=== PATIENT | female | born 1970 | race Caucasian/White ===

== ENCOUNTER 2020-07-03 13:43 | Inpatient (IN) ==
--- NOTE | 2020-07-03 13:56 | DR.RASH ---
HPI Time Seen Time Seen by Provider: 07/03/20 13:55 COVID-19 Coronavirus risk:travel/contact w/high risk person: No Has patient experienced Coronavirus symptoms: No Reviewed Nurses Notes Review: Yes Source History Provided: Patient (NOT GIVEN GOOD HISTORY CURRENTLY.) Mode of Arrival Mode of Arrival: EMS Location Location: Face and Hands Quality Quality: Pustules Context Circumstances: None (NOTED AFTER WEARING LATEX GLOVES.) History of: None Severity Pain Severity: Moderate Associated signs and symptoms Associated signs and symptoms: Facial swelling PMH PMH Past Medical History: Anxiety, Arthritis, Asthma, Depression, Migraines, GERD, Hypertension, Hypothyroidism and Seizures Past Surgical History: Yes Surgical History: Abdominal Surgery, Cholecystectomy, Hysterectomy, Tonsillectomy and Weight Loss Surgery Family History Family Medical History: Diabetes Mellitus, Cancer, [place], Coronary Artery Disease, Sudden Cardiac and Hypertension Social History Do you use any recreational Drugs:: No Travel Risk Coronavirus risk:travel/contact w/high risk person: No Has patient experienced Coronavirus symptoms: No ROS Review of Systems Constitutional: See HPI, Weakness and Fatigue; negative Fever Eyes: No Symptoms Reported and See HPI ENTM: No Symptoms Reported and See HPI; negative Nose Discharge and Nose Congestion Respiratoy: See HPI and Short of Breath Cardiovascular: See HPI and Palpitations Gastrointestinal/Abdominal: No Symptoms Reported and See HPI; negative Diarrhea and Vomiting Genitourinary: See HPI and Other (DARK COLOR URINE.); negative Dysuria Neurological: See HPI and Weakness Musculoskeletal: See HPI and Hand (SWELLING AND PAIN.) Integumentary: See HPI, Change in Color, Rash and Juandice Hematologic/Lymphatic: See HPI, Easy Bleeding and Easy Bruising Endocrine: See HPI and Increased Thirst Psychiatric: See HPI and Depression All Other Systems: Reviewed and Negative PE Vital Signs Vitals: Temperature 97.9 F Pulse Rate [Left Radial] 118 Pulse Rate 127 Respiratory Rate 19 Blood Pressure [Left Arm] 99/54 Blood Pressure 96/51 O2 Sat by Pulse Oximetry 100 General Limitations: Other (ANSWERING QUESTIONS SLOWLY.) General Appearance: Alert and In No Apparent Distress Head Head Exam: Normal Inspection and Atraumatic Eyes Eye exam: Normal Appearance, PERRL and Scleral Icterus; negative Conjunctival Injection ENT ENT Exam: Normal Oropharynx, Normal External Ear Exam, Mucous Membranes Dry and TM's Normal Bilaterally External Ear Exam: Normal External Inspection; negative Mastoid Tenderness TM/Canal Exam: Bilateral: Normal Nose Exam: Normal Nose Exam Mouth Exam: Normal Inspection; negative Lip Swelling and Tongue Swelling Teeth Exam: Dental Caries; negative Dental Tenderness # and Gingival Swelling Throat Exam: Normal Inspection; negative Tonsillar Erythema, Tonsillomegaly and Tonsillar Exudate Neck Neck Exam: Normal Inspection and Trachea Midline; negative Tenderness and Lymphadenopathy Chest Chest Inspection: Normal Inspection and Symmetric Chest Wall Rise; negative Tenderness Respiratory Respiratory Exam: Normal Lung Sounds Bilat, Accessory Muscle Use, Chest Wall Tenderness and Respiratory Distress Respiratory Exam: Bilateral: Rhonchi Cardiovascular Cardiovascular Exam: Normal Rhythm and Tachycardia; negative Systolic Murmur and Diastolic Murmur Abdominal Exam Abdominal Exam: Normal Bowel Sounds, Soft and Tenderness Abdominal Tenderness: Diffuse and Mild Extremities Extremities Exam: Tenderness, Edema and Other (SKIN INFECTION HANDS WITH SWELLING.); negative Normal Capillary Refill Back Back Exam: Normal Inspection; negative (R) CVA Tenderness and (L) CVA Tenderness Neurologic Neurological Exam: Alert (SLEEPY.), Oriented X3 and CN II-XII Intact; negative Motor Sensory Deficit Psychiatric Psychiatric Exam: Normal Affect and Flat Affect Skin Skin Exam: Dry, Rash (FINGERS AND HANDS.) and Erythema Type of Lesion: Rash Distribution: Face, LUE and RUE Description: Tenderness, Swelling and Other MDM Differential Diagnosis Differential Diagnosis: Contact dermatitis (HYPOTENSION, JAUDICE, PNEUMONIA, SEPSIS, LIVER DISEASE.) and Impetigo COURSE Treatment Treatment: SEE ORDERS. NS 1L IV BOLUS. ANCEF 1GM IVPB IN ER. BP STILL LOW BUT IMPROVING WITH HYDRATION. PATIENT RECTAL TEMP NORMAL. WILL ADMIT PATIENT FOR FURTHER MANAGEMENT. Consultation Consultation Comments: DISCUSSED PATIENT WITH DR. JARAMILLO. HE WILL ADMIT PATIENT. Education/Counseling Education/Counseling: Patient Educated On: Diagnosis ROR Labs Reviewed Laboratory Results Reviewed?: Yes Result Diagrams: 07/04/20 05:12 07/04/20 15:40 Laboratory: WBC 6.2 X10^3/uL (3.6-10.0) 07/03/20 15:09 RBC 4.34 X10^6/uL (3.5-5.4) 07/03/20 15:09 Hgb 15.2 g/dL (12.0-16.0) 07/03/20 15:09 Hct 47.5 % (36.0-47.0) H 07/03/20 15:09 MCV 109.6 fL (80.0-100.0) H 07/03/20 15:09 MCH 35.0 pg (27.0-34.0) H 07/03/20 15:09 MCHC 32.0 g/dL (33.0-35.0) L 07/03/20 15:09 RDW 17.5 % (11.6-16.5) H 07/03/20 15:09 Plt Count 125 X10^3/uL (150.0-450.0) L 07/03/20 15:09 Plt Count Comment Decreased (ADEQUATE) A 07/03/20 15:09 MPV 9.6 fL (7.4-11.0) 07/03/20 15:09 Neut % (Auto) 66.5 % (42.0-75.0) 07/03/20 15:09 Lymph % (Auto) 26.7 % (21.0-51.0) 07/03/20 15:09 Wetzel % (Auto) 5.1 % (0.0-13.0) 07/03/20 15:09 Eos % (Auto) 1.4 % (0.9-2.9) 07/03/20 15:09 Baso % (Auto) 0.3 % (0.2-1.0) 07/03/20 15:09 Neut # (Auto) 4.1 x10^3/uL (2.2-4.8) 07/03/20 15:09 Lymph # (Auto) 1.7 X10^3/uL (1.3-2.9) 07/03/20 15:09 Wetzel # (Auto) 0.3 x10^3/uL (0.3-0.8) 07/03/20 15:09 Eos # (Auto) 0.1 x10^3/uL (0.0-0.2) 07/03/20 15:09 Baso # (Auto) 0.0 X10^3/uL (0.0-0.1) 07/03/20 15:09 Absolute Nucleated RBC 0.3 /100WBC 07/03/20 15:09 Total Counted 100 07/03/20 15:09 Neutrophils % (Manual) 64 % (39-76) 07/03/20 15:09 Band Neutrophils % 3 % (0-10) 07/03/20 15:09 Lymphocytes % (Manual) 26 % (13-43) 07/03/20 15:09 Monocytes % (Manual) 7 % (4-9) 07/03/20 15:09 Plt Clumps, EDTA Rare 07/03/20 15:09 Plt Morphology Comment Normal (NORMAL) 07/03/20 15:09 RBC Morphology Abnormal (NORMAL) A 07/03/20 15:09 Macrocytosis 1+ A 07/03/20 15:09 Sodium 141 mmol/L (136-145) 07/03/20 15:09 Corrected Sodium TNP 07/03/20 15:09 Potassium 4.8 mmol/L (3.5-5.1) 07/03/20 15:09 Chloride 104 mmol/L (98-107) 07/03/20 15:09 Carbon Dioxide 24.6 mmol/L (21-32) 07/03/20 15:09 BUN 11 mg/dL (7-18) 07/03/20 15:09 Creatinine 2.13 mg/dL (0.55-1.02) H 07/03/20 15:09 Est GFR (MDRD) Af Amer 32 (>60) L 07/03/20 15:09 Est GFR (MDRD) Non-Af 26 (>60) L 07/03/20 15:09 Glucose 65 mg/dL (65-99) 07/03/20 15:09 Calcium 8.4 mg/dL (8.5-10.1) L 07/03/20 15:09 Corrected Calcium 9.8 mg/dL (8.5-10.1) 07/03/20 15:09 Ferritin 241 ng/mL (8-252) 07/03/20 15:09 Total Bilirubin 4.90 mg/dL (0.2-1.0) H 07/03/20 15:09 AST 59 Units/L (15-37) H 07/03/20 15:09 ALT 34 Units/L (12-78) 07/03/20 15:09 Alkaline Phosphatase 161 Units/L (46-116) H 07/03/20 15:09 Ammonia 79 umol/L (11-32) H 07/03/20 15:09 Creatine Kinase 46 Units/L (26-192) 07/03/20 15:09 CK-MB (CK-2) < 1.0 ng/mL (0-4.0) 07/03/20 15:09 CK/CKMB % Calc 2.2 % (<4) 07/03/20 15:09 Troponin I < 0.02 ng/mL (0-1.5) 07/03/20 15:09 C-Reactive Protein 105.30 mg/L (0-3.0) H 07/03/20 15:09 Total Protein 5.5 g/dL (6.4-8.2) L 07/03/20 15:09 Albumin 2.2 g/dL (3.4-5.0) L 07/03/20 15:09 Globulin 3.3 g/dL (2.5-4.5) 07/03/20 15:09 Albumin/Globulin Ratio 0.7 Ratio (1.1-2.1) L 07/03/20 15:09 Specimen Type Catherized urine 07/03/20 15:45 Urine Color Dark yellow (YELLOW) 07/03/20 15:45 Urine Appearance Slightly hazy (CLEAR) 07/03/20 15:45 Urine pH 6.0 (5.0 - 8.0) 07/03/20 15:45 Ur Specific [place] 1.015 (1.000-1.030) 07/03/20 15:45 Urine Protein Negative (NEGATIVE) 07/03/20 15:45 Urine Glucose (UA) Negative (NEGATIVE) 07/03/20 15:45 Urine Ketones Negative (NEGATIVE) 07/03/20 15:45 Urine Occult Blood Negative (NEGATIVE) 07/03/20 15:45 Urine Nitrite Negative (NEGATIVE) 07/03/20 15:45 Urine Bilirubin Negative (NEGATIVE) 07/03/20 15:45 Urine Urobilinogen 2+ (NORMAL) 07/03/20 15:45 Ur Leukocyte Esterase 1+ (NEGATIVE) 07/03/20 15:45 Urine RBC None seen /HPF (0-3) 07/03/20 15:45 Urine WBC None seen /HPF (0-5) 07/03/20 15:45 Ur Squamous Epith Cells Rare /HPF (NEGATIVE) 07/03/20 15:45 Urine Bacteria 2+ /HPF (NEGATIVE) 07/03/20 15:45 Ur Culture Indicated? No/not indicated 07/03/20 15:45 Urine Opiates Screen Negative (NEG=<300) 07/03/20 17:42 Urine Methadone Screen Negative (NEG=<300) 07/03/20 17:42 Ur Barbiturates Screen Negative (NEG=<200) 07/03/20 17:42 Ur Phencyclidine Scrn Negative (NEG=<25) 07/03/20 17:42 Ur Amphetamines Screen Negative (NEG=<1000) 07/03/20 17:42 U Benzodiazepines Scrn Negative (NEG=<200) 07/03/20 17:42 Urine Cocaine Screen Negative (NEG=<300) 07/03/20 17:42 U Marijuana (THC) Screen Negative (NEG=<50) 07/03/20 17:42 SARS CoV-2 RNA Rapid ANALI Negative (NEGATIVE) 07/03/20 17:54 SARS-CoV-2 IgG Ab Cancelled 07/03/20 15:09 SARS-CoV-2 IgG (MADIE) 1 Cancelled 07/03/20 15:09 XRAY XRAY Interpreted by: Radiologist (REPORT NOTED.) and Self EKG Rate: 128 [place]: Normal Rhythm: ST Block: None Hypertrophy: None (LOW VOLTAGE.) ST: Normal Opioid Opioid Risk Tool Age (Jackson box if 16-45): No Total: 0 Total Score Risk Category: Low Risk Copyright: Hilario VÁZQUEZ predicting aberrant behaviors Diagnosis Discharge Problem: Acute hypotension, Encephalopathy, hepatic, Acute renal insufficiency, Thrombocytopenia
[2020-07-03 14:01] VITALS: BMI 21.9
[2020-07-03] MEDS ORDERED: NS 1000 ML 1,000 ML ONE (14:06)
[2020-07-03] MEDS: NS 1000 ML 1,000 ML IV SCH (14:13)
--- NOTE | 2020-07-03 14:56 | RAD ---
HISTORYShortness of breathSTUDYChest AP [id number]/15/2019FINDINGSThe heart is within normal limits in size. The arie are normal. The lungs are free of acute infiltrates. No pleural effusions are identified. Bony thorax is unremarkable.IMPRESSIONNo significant abnormality identifiedElectronically signed by: POLLO TORRES (Jul 03, 2020 14:54:47)
[2020-07-03 15:22] LABS: BASOPHILS % (AUTO) 0.3 % (0.2-1.0); EOSINOPHILS # (AUTO) 0.1 x10^3/uL (0.0-0.2); EOSINOPHILS % (AUTO) 1.4 % (0.9-2.9); HEMATOCRIT 47.5 % (36.0-47.0); HEMOGLOBIN 15.2 g/dL (12.0-16.0); LYMPHOCYTES # (AUTO) 1.7 X10^3/uL (1.3-2.9); LYMPHOCYTES % (AUTO) 26.7 % (21.0-51.0); MEAN CORPUSCULAR VOLUME 109.6 fL (80.0-100.0); MEAN PLATELET VOLUME 9.6 fL (7.4-11.0); MONOCYTES # (AUTO) 0.3 x10^3/uL (0.3-0.8); MONOCYTES % (AUTO) 5.1 % (0.0-13.0); NEUTROPHILS # (AUTO) 4.1 x10^3/uL (2.2-4.8); NEUTROPHILS % (AUTO) 66.5 % (42.0-75.0); PLATELET COUNT 125 X10^3/uL (150.0-450.0); RED BLOOD COUNT 4.34 X10^6/uL (3.5-5.4); RED CELL DISTRIBUTION WIDTH 17.5 % (11.6-16.5); WHITE BLOOD COUNT 6.2 X10^3/uL (3.6-10.0)
[2020-07-03 15:37] LABS: AMMONIA 79 umol/L (11-32); BAND NEUTROPHILS % 3 % (0-10)
[2020-07-03 15:38] LABS: PLATELET MORPHOLOGY COMMENT NORMAL (NORMAL)
[2020-07-03 15:49] LABS: ALANINE AMINOTRANSFERASE 34 Units/L (12-78); ALBUMIN 2.2 g/dL (3.4-5.0); ALKALINE PHOSPHATASE 161 Units/L (46-116); ASPARTATE AMINO TRANSFERASE 59 Units/L (15-37); BLOOD UREA NITROGEN 11 mg/dL (7-18); CALCIUM 8.4 mg/dL (8.5-10.1); CARBON DIOXIDE 24.6 mmol/L (21-32); CHLORIDE 104 mmol/L (98-107); CKMB % 2.2 % (<4); COR CA(FOR HYPOALB) 9.8 mg/dL (8.5-10.1); CREATINE KINASE 46 Units/L (26-192); CREATINE KINASE MB < 1.0 ng/mL (0-4.0); CREATININE 2.13 mg/dL (0.55-1.02); SODIUM 141 mmol/L (136-145); TOTAL PROTEIN 5.5 g/dL (6.4-8.2); TROPONIN I < 0.02 ng/mL (0-1.5); eGFR NON BLACK RACES 26 (>60)
[2020-07-03 15:59] LABS: BILIRUBIN,URINE NEGATIVE (NEGATIVE); BLOOD/HEMOGLOBIN,URINE NEGATIVE (NEGATIVE); GLUCOSE, URINE NEGATIVE (NEGATIVE); KETONES,URINE NEGATIVE (NEGATIVE); LEUKOCYTE ESTERASE ,URINE 1+ (NEGATIVE); NITRITES,URINE NEGATIVE (NEGATIVE); PROTEIN,URINE NEGATIVE (NEGATIVE); UROBILINOGEN,URINE 2+ (NORMAL)
[2020-07-03 16:04] LABS: APPEARANCE,URINE SLIGHTLY HAZY (CLEAR); BACTERIA,URINE 2+ /HPF (NEGATIVE); COLOR,URINE DARK YELLOW (YELLOW); RBC,URINE NONE SEEN /HPF (0-3); SQUAMOUS EPITHELIAL CELL,UR RARE /HPF (NEGATIVE)
--- NOTE | 2020-07-03 18:25 | CT ---
HISTORYPt c/o rash to hands and around mouth. She is unable to state when this started. Pt has been wearing latex gloves at home. She states pcp dx her with eczema.STUDYCT abdomen pelvis without IV contrastCOMPARISONCT 10/14/2018TECHNIQUEMultiple axial images of the abdomen and pelvis were obtained from the lung bases to the pubic symphysis without the administration of IV contrast. Dose reduction techniques including Automated Exposure Control (AEC) and adjustment of mA and kV were utilized.FINDINGSThe visualized portions of the lung bases suggest probable mild dependent atelectasis but this could be mild noncardiogenic pulmonary edema.Fatty infiltration of the liver and hepatomegaly are similar to prior study. Spleen is normal in size. Calcified granuloma are seen in the right lobe of the liver. Stable accessory splenule is seen near the splenic hilum.Prior cholecystectomy. No biliary ductal dilation.No pancreatic abnormality is seen.The adrenal glands appear normal.Stable appearing 1.7 cm exophytic cyst in the mid left kidney. No nephrolithiasis or hydronephrosis. Phleboliths are seen in the pelvis. Ureters and bladder appear normal.There is colitis in the ascending colon and proximal transverse colon. Mild left-sided constipation is seen. There is mild constipation in the cecum. Postoperative changes are seen in the stomach and small bowel in the left upper quadrant. No suggestion of small-bowel obstruction. Appendix is not seen but no pericecal inflammation is seen.There is a probable right ovarian cyst measuring 3.3 cm. Consider follow-up ultrasound in 6-8 weeks time to assure resolution.Abdominal aorta is normal in size.No suspicious lymphadenopathy.Mild free pelvic fluid.No acute bony abnormality is seen.IMPRESSIONColitis in the ascending and transverse colon. Mild constipation in the left side of the colon and cecum. Infectious colitis is most likely etiology.Likely 3.3 cm right ovarian cyst. Consider follow-up ultrasound in 6-8 weeks time to assure resolutionElectronically signed by: Mason Murrieta (Jul 03, 2020 18:23:48)
[2020-07-03 23:59] LABS: CKMB % 2.2 % (<4); CREATINE KINASE 50 Units/L (26-192); CREATINE KINASE MB 1.1 ng/mL (0-4.0); TROPONIN I < 0.02 ng/mL (0-1.5)
[2020-07-04 01:38] LABS: BILIRUBIN,URINE 1+ (NEGATIVE); BLOOD/HEMOGLOBIN,URINE NEGATIVE (NEGATIVE); GLUCOSE, URINE NEGATIVE (NEGATIVE); KETONES,URINE NEGATIVE (NEGATIVE); LEUKOCYTE ESTERASE ,URINE 1+ (NEGATIVE); NITRITES,URINE NEGATIVE (NEGATIVE); PROTEIN,URINE NEGATIVE (NEGATIVE); UROBILINOGEN,URINE 2+ (NORMAL)
[2020-07-04] MEDS: NS 1000 ML 1,000 ML IV SCH ×2 (01:40→06:35)
[2020-07-04 01:49] LABS: APPEARANCE,URINE SLIGHTLY HAZY (CLEAR); COLOR,URINE YELLOW (YELLOW)
[2020-07-04 01:50] LABS: BACTERIA,URINE 4+ /HPF (NEGATIVE); RBC,URINE NONE SEEN /HPF (0-3); SQUAMOUS EPITHELIAL CELL,UR NEGATIVE /HPF (NEGATIVE)
[2020-07-04] MEDS ORDERED: D50W ABBOJECT SYR ONE ×2 (02:02→06:15)
[2020-07-04] MEDS ORDERED: D50W ABBOJECT SYR IV ONE ×2 (02:10→06:13)
[2020-07-04] MEDS ORDERED: NS 1000 ML 1,000 ML ONE ×3 (02:25→17:07)
[2020-07-04] MEDS ORDERED: ANCEF VIAL 1 GRAM IVP SCH (06:10)
[2020-07-04] MEDS: KEPPRA TAB 500 MG PO SCH ×2 (06:14→09:00)
[2020-07-04] MEDS ORDERED: ANCEF VIAL 1 GRAM ONE (06:15)
[2020-07-04 06:16] LABS: BASOPHILS % (AUTO) 0.2 % (0.2-1.0); EOSINOPHILS # (AUTO) 0.1 x10^3/uL (0.0-0.2); EOSINOPHILS % (AUTO) 2.1 % (0.9-2.9); HEMATOCRIT 40.2 % (36.0-47.0); LYMPHOCYTES % (AUTO) 36.2 % (21.0-51.0); MEAN CORPUSCULAR HGB CONC 32.3 g/dL (33.0-35.0); MEAN CORPUSCULAR VOLUME 108.3 fL (80.0-100.0); MEAN PLATELET VOLUME 10.8 fL (7.4-11.0); MONOCYTES # (AUTO) 0 x10^3/uL (0.3-0.8); MONOCYTES % (AUTO) 1.7 % (0.0-13.0); NEUTROPHILS # (AUTO) 1.6 x10^3/uL (2.2-4.8); NEUTROPHILS % (AUTO) 59.8 % (42.0-75.0); PLATELET COUNT 81 X10^3/uL (150.0-450.0); RED BLOOD COUNT 3.71 X10^6/uL (3.5-5.4); RED CELL DISTRIBUTION WIDTH 18.2 % (11.6-16.5); WHITE BLOOD COUNT 2.6 X10^3/uL (3.6-10.0)
[2020-07-04 06:32] LABS: ALANINE AMINOTRANSFERASE 26 Units/L (12-78); ALBUMIN 1.3 g/dL (3.4-5.0); ALKALINE PHOSPHATASE 122 Units/L (46-116); ASPARTATE AMINO TRANSFERASE 68 Units/L (15-37); BLOOD UREA NITROGEN 13 mg/dL (7-18); CARBON DIOXIDE 16.1 mmol/L (21-32); CHLORIDE 109 mmol/L (98-107); CKMB % 2.7 % (<4); COR CA(FOR HYPOALB) 9.2 mg/dL (8.5-10.1); CREATINE KINASE 93 Units/L (26-192); CREATINE KINASE MB 2.5 ng/mL (0-4.0); CREATININE 2.72 mg/dL (0.55-1.02); MAGNESIUM 1.6 mg/dL (1.7-2.9); SODIUM 143 mmol/L (136-145); TOTAL PROTEIN 4.1 g/dL (6.4-8.2); TROPONIN I 0.02 ng/mL (0-1.5); eGFR NON BLACK RACES 20 (>60)
[2020-07-04] MEDS ORDERED: D5 NS 1000 ML 1,000 ML IV ONE ×7 (07:29→10:53)
[2020-07-04] MEDS ORDERED: ROCEPHIN 1 GRAM IV PREMIX 1 G/50 ML IV.SOLN. IV ONE (07:33)
[2020-07-04] MEDS: ROCEPHIN 1 GRAM IV PREMIX 1 G/50 ML IV.SOLN. IV SCH ×2 (07:34→09:01)
[2020-07-04 07:39] LABS: BAND NEUTROPHILS % 19 % (0-10); METAMYELOCYTES % 7
[2020-07-04 07:40] LABS: PLATELET MORPHOLOGY COMMENT NORMAL (NORMAL)
[2020-07-04 07:41] LABS: ABG ALLEN TEST POS; ABG BASE EXCESS -8.3 mmol/L (-2.0-2.0); ABG HCO3 14.3 mmol/L (22-26)
--- NOTE | 2020-07-04 08:16 | RAD ---
HISTORYNG tube placementSTUDYChest AP portableCOMPARISON8 June 2020FINDINGSThere is a nasogastric tube present with its tip in the expected position of the stomach however the side hole is above the gastroesophageal junction and advancement is recommended. The heart is within normal limits in size. The arie are normal. There has been interval development of a patchy right upper lobe infiltrate since the prior examination. The remainder of the lung richardson are clear. No pleural effusions are identified. Bony thorax is unremarkable.IMPRESSIONNG tube tip likely within the stomach however the side hole is within the distal esophagus and advancement is recommendedInterval development of a right upper lobe infiltrate since the prior examinationElectronically signed by: POLLO TORRES (Jul 04, 2020 08:14:22)
[2020-07-04] MEDS ORDERED: CHRONULAC ONE (08:28)
[2020-07-04] MEDS: CHRONULAC NG SCH ×3 (08:34→16:32)
[2020-07-04 09:30] LABS: LIPASE 21 Units/L (73-393)
[2020-07-04 09:31] LABS: AMYLASE 7 Units/L (25-115)
--- NOTE | 2020-07-04 09:49 | RAD ---
HISTORYCentral line placementSTUDYChest AP portableCOMPARISON04 July 2020 7:53 a.m.FINDINGSThere is a right IJ line with its tip at the cavoatrial junction. There is a nasogastric tube in good position. The heart is within normal limits in size. The arie are normal. Increasing infiltrate is present in the right upper and now the right lower lobe perihilar regions. The left lung is clear. Bony thorax is unremarkable.IMPRESSIONRight IJ line tip cavoatrial junctionIncreasing right lung infiltrateElectronically signed by: POLLO TORRES (Jul 04, 2020 09:47:25)
[2020-07-04] MEDS: LEVOPHED INJ 8 MG in D5W 250 ML IV 242 ML IV PRN ×3 (09:58→15:52)
[2020-07-04] MEDS ORDERED: ZOSYN VIAL 3.375 GRAMS IV ONE ×2 (10:35→14:55)
[2020-07-04] MEDS ORDERED: NS 100 ML IV + SPIKE MINIBAG* 100 ML IV ONE ×2 (10:35→14:55)
[2020-07-04] MEDS: ZOSYN VIAL 3.375 GRAMS 3.375 G in NS 100 ML IV + SPIKE MINIBAG* 100 ML IV SCH ×2 (10:45→15:13)
[2020-07-04 10:47] LABS: ABG BASE EXCESS -19.7 mmol/L (-2.0-2.0)
[2020-07-04 10:48] LABS: ABG HCO3 7.1 mmol/L (22-26)
[2020-07-04] MEDS ORDERED: SODIUM BICARBONATE 8.4% INJ ADULT ONE ×4 (10:54→17:06)
[2020-07-04] MEDS ORDERED: KETALAR ONE (10:54)
[2020-07-04] MEDS ORDERED: DIPRIVAN PREMIX 1 GRAM IV 1,000 MG/100 ML VIAL ONE (10:55)
[2020-07-04] MEDS ORDERED: NORCURON INJ 10 MG VIAL ONE (11:07)
[2020-07-04] MEDS ORDERED: SODIUM BICARBONATE 8.4% INJ ADULT IVP ONE ×6 (11:07→17:11)
[2020-07-04] MEDS ORDERED: NS 50 ML IV 50 ML IV ONE (11:08)
[2020-07-04] MEDS ORDERED: VASOSTRICT INJ 20 UNITS VIAL 40 UNITS in NS 100 ML IV 100 ML IV PRN (11:09)
[2020-07-04] MEDS ORDERED: DIPRIVAN PREMIX 500 MG IV 500 MG/50 ML VIAL IV ONE (11:12)
[2020-07-04] MEDS ORDERED: NORCURON INJ 10 MG VIAL 50 MG in NS 50 ML IV 50 ML IV PRN (11:18)
[2020-07-04] MEDS ORDERED: DIPRIVAN PREMIX 1 GRAM IV 1,000 MG/100 ML VIAL IV PRN (11:48)
[2020-07-04] MEDS ORDERED: TOBRAMYCIN SULFATE ONE (11:50)
--- NOTE | 2020-07-04 11:50 | RAD ---
HISTORYET TUBE PLACEMENTSTUDYCHEST, 1 [id number]/09/2021.TECHNIQUEAP view of the chestFINDINGSLow lying ET tube projects approximately 3 mm from the gerry in the direction of the right mainstem bronchus. Right IJ central line terminates in the right atrium. NG tube terminates in the stomach with the side port at the GE junction. Cardiac and mediastinal contours are within normal limits. Stable bilateral pulmonary opacities. No definite pleural effusion or pneumothorax.IMPRESSIONLow lying ET tube. Recommend 3 cm retraction. Recommend 3 cm retraction of right IJ central line and 4-5 cm advancement of NG tube.Electronically signed by: Timur Gómez (Jul 04, 2020 11:48:32)
[2020-07-04] MEDS ORDERED: NS 100 ML IV 100 ML IV ONE (11:51)
[2020-07-04] MEDS ORDERED: NS IV SCH ×2 (12:00)
[2020-07-04] MEDS ORDERED: SODIUM BICARBONATE IV SCH ×2 (12:00)
[2020-07-04] MEDS ORDERED: TOBRAMYCIN SULFATE 80 MG in NS 100 ML IV 98 ML IV SCH (12:00)
[2020-07-04] MEDS ORDERED: ZYVOX 600MG IV 600 MG/300 ML BAG IV SCH (12:00)
[2020-07-04] MEDS ORDERED: D5 1/2 NS 1000 ML 1,000 ML IV ONE (12:03)
[2020-07-04 12:54] LABS: ABG BASE EXCESS -18.6 mmol/L (-2.0-2.0)
[2020-07-04 12:55] LABS: ABG HCO3 10.4 mmol/L (22-26)
[2020-07-04] MEDS ORDERED: D5 NS 1000 ML 1,000 ML IV SCH (13:00)
[2020-07-04] MEDS ORDERED: ADRENALINE CHL INJ 3 MG in NS 250 ML IV 247 ML IV PRN (14:20)
[2020-07-04] MEDS: ADRENALINE CHL INJ 3 MG in NS 250 ML IV 247 ML IV PRN ×3 (14:22→16:55)
[2020-07-04 15:48] LABS: ABG BASE EXCESS -12.4 mmol/L (-2.0-2.0)
[2020-07-04 15:49] LABS: ABG HCO3 12.1 mmol/L (22-26)
[2020-07-04 16:12] LABS: LACTIC ACID 14.8 mmol/L (0.4-2.0)
[2020-07-04 16:37] LABS: CKMB % 2.2 % (<4); CREATINE KINASE MB 3.6 ng/mL (0-4.0); TROPONIN I 0.02 ng/mL (0-1.5)
[2020-07-04 16:41] LABS: CREATININE 2.71 mg/dL (0.55-1.02); TOTAL PROTEIN 2.9 g/dL (6.4-8.2)
[2020-07-04 16:44] LABS: CARBON DIOXIDE 16.3 mmol/L (21-32); COR CA(FOR HYPOALB) 8.2 mg/dL (8.5-10.1)
[2020-07-04 17:03] LABS: CALCIUM 5.8 mg/dL (8.5-10.1)
[2020-07-04] MEDS ORDERED: DECADRON INJ ONE (17:06)
[2020-07-04] MEDS ORDERED: DECADRON INJ IV ONE (17:10)
[2020-07-04 17:38] VITALS: BP 98/52
[2020-07-04] MEDS ORDERED: LR 1000 ML IV 1,000 ML IV ONE (18:04)
--- NOTE | 2020-07-04 18:05 | DR.H&P ---
H&P - History & Physical for Day of: H&P Date: 07/03/20 - Chief Complaint Chief Complaint: WEAKNESS, N/V, "NOT ATE FOR A WEEK", RASH TO HANDS - History of Present Illness History of Present Illness: PT IS 49 WF ER ADMISSION WITH WEAKNESS, AMS, DEHYDRATION. FAMILY REPORTS PT HAD NOT BEEN ABLE TO EAT FOR ONE WEEK. PT FAMILY REPORTS SHE WAS SICK A FEW WEEKS AGO WITH SIMILAR SYMPTOMS AND HOSPITALIZED AT [facility] IN [place], [place]. DENIES COVID SYMPTOMS, DENIES COVID + HISTORY. PT WAS HYPOTENSIVE WITH ACUTE LIVER FAILURE ON ADMISSION. PT HAS PMH OF GASTRIC WEIGHT LOSS SURGERY, HYPOTHYROIDISM, ANEMIA, GERD. PT ADMITTED FOR ACUTE ILLNESS - Past Medical History Past Medical History: Hypertension, Depression, Anxiety, Hypothyroidism, Seizures, Asthma, GERD, Arthritis, Migraines - Past Surgical History Surgical History: Cholecystectomy, Hysterectomy, Weight Loss Surgery, Other - Family History Family Medical History: Hypertension - Social History Does patient currently use any type of tobacco product: Yes Have you used tobacco products in the last 12 months: Yes Type of Tobacco Use: VAPES Does any household member use tobacco: Yes Alcohol Use: None Drug Use: Prescription Drugs - Medications Home Medications: morphine Adverse Reaction (Verified 12/07/18 11:53) - Review of Systems Constitutional: Weakness. denies: Fever Eyes: No Symptoms Reported ENT: No Symptoms Reported Respiratory: No Symptoms Reported Cardiovascular: No Symptoms Reported Gastrointestinal: Nausea Skin: Rash Neurological: Weakness, Confusion - Physical Exam Vital Signs: Temperature 96.7 F Pulse Rate [Left Radial] 159 Pulse Rate 162 Respiratory Rate 24 Blood Pressure [Left Arm] 80/52 Blood Pressure 98/52 O2 Sat by Pulse Oximetry 95 Oriented: negative: Time, Person Ear: Normal Nose: Normal Throat: Dry Respiratory: RLL Diminished, LLL Diminished Cardiovascular: Tachycardia : Normal Tenderness: RUQ Skin: Decreased Turgur, Rash, Wound Musculoskeletal: Normal Speech Pattern: Inappropriate, Delayed, Slurred - Assessment/Plan (1) Sepsis Status: Acute Plan: ADMIT CC STATUS, ICU. IV HYDRATION STRICT I&OS, IV FLUID BOLUS. BP CONTROL, CONTINOUS CARDIAC MONITORING, CT ABDPELVIS AND CXR ON ADMISSION IN ER, BLOOD AND URINE CULTURES. IV ATBX THERAPY, CONFIRM HOME MEDICATIONS. SUPPLEMENTAL O2, ABG, TOXICOLOGY (2) AMS (altered mental status) Status: Acute (3) Acute liver failure Status: Acute (4) Acute renal failure Status: Acute - Allergies Allergies/Adverse Reactions: Allergies Allergy/AdvReac Type Severity Reaction Status Date / Time morphine AdvReac Verified 12/07/18 11:53
[2020-07-10 07:13] LABS: HEPATITIS B SURFACE ANTIGEN Negative (Negative)
== END 2020-07-04 18:37 | disposition critical access hospital (66) | DRG 442 ==
LOC: MED/SURG 13:43 → ER 13:43 → OBSVTOIN 21:08 → MED/SURG 21:10
PROVIDERS: ADMIT Internal Medicine; ATTEND Internal Medicine
DX: E86.0 Dehydration; E03.8 Other specified hypothyroidism; Z20.822 Contact with and (suspected) exposure to COVID-19; R79.82 Elevated C-reactive protein (CRP); R41.82 Altered mental status, unspecified; R79.89 Other specified abnormal findings of blood chemistry; I95.89 Other hypotension; R00.0 Tachycardia, unspecified; R60.0 Localized edema; K21.9 Gastro-esophageal reflux disease without esophagitis; N39.0 Urinary tract infection, site not specified; I10 Essential (primary) hypertension; N17.8 Other acute kidney failure; R73.09 Other abnormal glucose; R06.02 Shortness of breath; K72.90 Hepatic failure, unspecified without coma; R79.1 Abnormal coagulation profile; R53.1 Weakness